=== PATIENT | female | born 1980 | race African-American/Black ===

== ENCOUNTER 2020-10-13 15:45 | Emergency (ER) | payer BC, OTHER ==
[~2020-10-13] VITALS: Ht 167.6 cm; Wt 73.0 kg
[~2020-10-13 15:45] MED LIST: AMOXICILLIN; CLAVULANATE; LORATADINE; NEOMYCIN; POLYMYXIN
[2020-10-13 16:47] LABS: BASOPHILS % 0.5 % (0.0-2.0); EOSINOPHILS % 1.3 % (0.0-5.0); HEMATOCRIT. 36.3 % (36.0-48.0); HEMOGLOBIN. 12.3 g/dL (12.0-16.0); LYMPHOCYTES % 21.3 % (20.0-50.0); MEAN CORPUSCULAR HEMOGLOBIN 28.3 pg (28.0-32.0); MEAN CORPUSCULAR VOLUME 83.3 fL (81.0-99.0); MEAN PLATELET VOLUME 7.8 fl (7.4-10.4); MONOCYTES % 8.7 % (2.0-8.0); NEUTROPHILS % 68.2 % (40.0-76.0); PLATELET 317 x1000/uL (130-400); RED BLOOD CELL COUNT 4.36 mill/uL (4.2-5.4); RED CELL DISTRIBUTION WIDTH 13.3 % (11.6-14.6)
[2020-10-13 16:52] LABS: CHLORIDE 104 mEq/L (98-107)
[2020-10-13 19:39] VITALS: BP 122/84
== END 2020-10-13 19:49 | disposition home or self-care (01) ==
LOC: ER 15:45
DX: T88.1XXA Other complications following immunization, not elsewhere classified, initial encounter (principal); R07.89 Other chest pain
CPT/HCPCS: 36415; 71045; 80053; 84484; 85025; 93005; 99285